=== PATIENT | female | born 1990 | race Two or more races ===

== ENCOUNTER 2024-03-25 06:50 | Emergency (ER) | payer MEDICAID, OTHER ==
[~2024-03-25] VITALS: Ht 157.5 cm; Wt 68.1 kg
--- NOTE | 2024-03-25 07:09 | ED.PDOC ---
SOB-HPI HPI Comments 33 YEAR OLD FEMALE PRESENTS TO THE ED WITH CHIEF COMPLAINT OF COUGH. PATIENT REPORTS THAT SHE HAS BEEN EXPERIENCING A COUGH WITH ASSOCIATED NASAL CONGESTION AND SORE THROAT SINCE YESTERDAY. PATIENT RELAYS THAT SHE IS CURRENTLY 8 WEEKS . PATIENT IS . PATIENT DENIES ANY N/V/D, SOB, CHEST PAIN, DIZZINESS, HEADACHE, FEVER, OR CHILLS. Chief Complaint: Flu like Time Seen by MD: 07:00 Reviewed notes: Nurses Notes, Medications, Allergies Information Source: Patient Mode of Arrival: Ambulatory Severity: Mild Timing: Days Duration: Since onset Context: At Rest PE Risk Factors: None History of: None Prehospital treatment: None Modifying Factors: Nothing Associated Signs and Symptoms: Cough, Nasal Congestion, Sore Throat If cough with SOB: Productive Past Medical History PAST MEDICAL HISTORY: Denies Surgical History: Denies all surgeries GROUP HOME COUNSELOR History: No Pertinent GROUP HOME COUNSELOR History 4 Para 3 Family History Family History: Reviewed,noncontributory to illness Social History Smoker: Non-Smoker Alcohol: Denies ETOH Use Drugs: Denies Drug Use Lives In: Home Constitutional: denies: chills, diaphoresis, fatigue, fever, malaise, sweats, weakness, others EENTM: reports: nose congestion, throat pain; denies: blurred vision, double vision, ear bleeding, ear discharge, ear drainage, ear pain, ear ringing, eye pain, eye redness, hearing loss, mouth pain, mouth swelling, nasal discharge, nose bleeding, nose pain, photophobia, tearing, throat swelling, voice changes, others Respiratory: reports: cough; denies: hemoptysis, orthopnea, SOB at rest, shortness of breath, SOB with excertion, stridor, wheezing, others Cardiovascular: denies: chest pain, dizzy spells, diaphoresis, Dyspnea on exertion, edema, irregular heart beat, left arm pain, lightheadedness, palpitations, PND, syncope, others Gastrointestinal: denies: abdomen distended, abdominal pain, blood streaked bowels, constipated, diarrhea, dysphagia, difficulty swallowing, hematemesis, melena, nausea, poor appetite, poor fluid intake, rectal bleeding, rectal pain, vomiting, others Genitourinary: reports: ; denies: abnormal vagina bleeding, burning, dyspareunia, dysuria, flank pain, frequency, hematuria, incontinence, pain, vagina discharge, urgency, others Neurological: denies: dizziness, fainting, headache, left sided numbness, left sided weakness, numbness, paresthesia, pre-existing deficit, right sided numbness, right sided weakness, seizure, speech problems, tingling, tremors, weakness, others Musculoskeletal: denies: back pain, gout, joint pain, joint swelling, muscle pain, muscle stiffness, neck pain, others Integumetry: denies: bruises, change in color, change in hair/nails, dryness, laceration, lesions, lumps, rash, wounds, others Allergic/Immunocompromised: denies: Difficulty Healing, Frequent Infections, Hives, Itching, others Hematologic/Lymphatic: denies: anemia, blood clots, easy bleeding, easy bruising, swollen glands, others Endocrine: denies: excessive hunger, excessive sweating, excessive thirst, excessive urination, flushing, intolerance to cold, intolerance to heat, unexplained weight gain, unexplained weight loss, others Psychiatric: denies: anxiety, bipolar disorder, depression, hopeless, panic disorder, schizophrenia, sleepless, suicidal, others All Other Systems: Reviewed and Negative Physical Exam General Appearance: No Apparent Distress, Normal HEENT: PERRL/EOMI, Pharyngeal Erythema (VESICLE PHARYNX, NO EXUDATES. ), TMs Normal Neck: Full Range of Motion, Non-Tender, Normal, Normal Inspection Respiratory: Chest Non-Tender, Lungs Clear, No Accessory Muscle Use, No Respiratory Distress, Normal Breath Sounds Cardiovascular: No Edema, No JVD, No Murmur, No Gallop, Normal Peripheral Pulses, Regular Rate/Rhythm Breast Exam: Deferred Gastrointestinal: No Organomegaly, Non Tender, No Pulsatile Mass, Normal Bowel Sounds, Soft Genitalia: Deferred Pelvic: Deferred Rectal: Deferred Extremities: No calf tenderness, Normal capillary refill, Normal inspection, Normal range of motion, Non-tender, No pedal edema Musculoskeletal : Apperance: Normal Neurologic: Alert, public relations II-XII nml as Tested, No Motor Deficits, Normal Affect, Normal Mood, No Sensory Deficits Cerebellar Function: Normal Reflexes: Normal Skin: Dry, Normal Color, Warm Peripheral Pulses: 2+ carotid (R), 2+ carotid (L) Lymphatic: No Adenopathy Was a procedure done? Was a procedure done?: No Differential Dx Differential Diagnosis: Sinusitis, Allergic Rhinitis, Otitis Media, Pharyngitis, URI X-Ray, Labs, Meds, VS Vital Signs Date Time Temp Pulse Resp B/P (MAP) Pulse Ox O2 Delivery O2 Flow Rate FiO2 03/25/24 06:57 98.7 111 16 113/75 (88) 96 03/25/24 06:57 16 96 Room Air* 0 21 X-Ray, Labs, Meds, VS Comment - I reviewed the following notes from patient's past medical encounters: NA - The following tests were ordered, and results were reviewed by me: NA - Additional information was gathered from interviewing the following independent Historian: NA - I reviewed and agreed with the following test results read by other provider: NA - I discussed treatments and results with medical personnel. Time of 1ST Reevaluation: 07:30 Reevaluation 1ST: Improved Patient Education/Counseling: Diagnosis, Treatment, Need For Follow Up Family Education/Counseling: Diagnosis, Treatment, Need For Follow Up Medical Screening: No EMC Exist At This Time Departure 1 Departure Time of Disposition: 07:30 Impression: Primary Impression: Pharyngitis Qualified Codes: J02.9 - Acute pharyngitis, unspecified Disposition: 01 HOME / SELF CARE / HOMELESS Condition: Stable Additional Instructions: FOLLOW UP WITH PCP WITHIN 2-3 DAYS. e-Prescriptions Acetaminophen (Tylenol Extra Strength Fo) 500 Mg Tab 500 MG PO TID, #30 TAB Prov: KHUSHBOO GIRALDO 03/25/24 Azithromycin (ZITHROMAX TABLET) 250 Mg Tb 250 MG PO DAILY, #6 TAB Prov: KHUSHBOO GIRALDO 03/25/24 Discharged With: Self Critical Care Note Critical Care Time?: No Stability Stability form required: No Heart Score Heart Score: Heart Score Response (Comments) Value History N/A 0 EKG N/A 0 Age N/A 0 Risk Factors N/A 0 Troponin N/A 0 Total 0 I personally scribed for KHUSHBOO GIRALDO ([email or web address]) on 03/25/24 at 07:09. Electronically submitted by Isidro Andres ([email or web address]). KHUSHBOO GIRALDO Mar 25, 2024 07:09
[2024-03-25] MEDS ORDERED: ACET-1304 PO (07:12)
[2024-03-25] MEDS ORDERED: AZIT-185 PO (07:12)
[2024-03-25 07:33] VITALS: BP 113/78; PULSE 101; RESP 18; TEMP 98.7; O2SAT 98
== END 2024-03-25 07:35 | disposition home or self-care (01) ==
LOC: ER 06:50
DX: O99.511 Diseases of the respiratory system complicating pregnancy, first trimester (principal); J02.9 Acute pharyngitis, unspecified; Z3A.08 8 weeks gestation of pregnancy

== ENCOUNTER 2024-09-16 08:50 | Emergency (ER) | payer OTHER, MEDICAID ==
[~2024-09-16] VITALS: Ht 160 cm; Wt 72.0 kg
[~2024-09-16 08:50] MED LIST: ACET-1304 PO; AZIT-185 PO
[2024-09-16 09:05] VITALS: BP 114/77; PULSE 101; RESP 17; TEMP 98.6; O2SAT 96
--- NOTE | 2024-09-16 09:32 | ED.PDOC ---
History of Present Illness HPI Comments 33-year-old female presents with a chief complaint of flu-like symptoms x 3 days. Patient states that she has been feeling nasal congestion, body aches, and throat pain. Patient is 33 weeks , . Patient denies any vaginal bleeding at this time or pelvic pain. Patient is currently on Keflex for 3 pills x daily for a diagnosed UTI. Chief Complaint: Flu like Time Seen by MD: 09:19 Reviewed Notes: Medications, Allergies Allergies: Coded Allergies: Morphine (Verified Allergy, Unknown, 03/25/24) Home Meds Active Scripts Acetaminophen (Tylenol Extra Strength Fo) 500 Mg Tab, 500 MG PO TID, #30 TAB Prov:KHUSHBOO GIRALDO 03/25/24 Azithromycin (ZITHROMAX TABLET) 250 Mg Tb, 250 MG PO DAILY, #6 TAB Prov:KHUSHBOO GIRALDO 03/25/24 Information Source: Patient Mode of Arrival: Ambulatory Severity: Moderate Timing: Days Duration: Since onset Prehospital treatment: None Past Medical History PAST MEDICAL HISTORY: Denies Surgical History: Denies all surgeries SCRAP YARD WORKER History: No Pertinent SCRAP YARD WORKER History Family History Family History: Reviewed,noncontributory to illness Social History Smoker: Non-Smoker Alcohol: Denies ETOH Use Drugs: Denies Drug Use Lives In: Home Constitutional: denies: chills, diaphoresis, fatigue, fever, malaise, sweats, weakness, others EENTM: reports: nose congestion, throat pain; denies: blurred vision, double vision, ear bleeding, ear discharge, ear drainage, ear pain, ear ringing, eye pain, eye redness, hearing loss, mouth pain, mouth swelling, nasal discharge, nose bleeding, nose pain, photophobia, tearing, throat swelling, voice changes, others Respiratory: denies: cough, hemoptysis, orthopnea, SOB at rest, shortness of breath, SOB with excertion, stridor, wheezing, others Cardiovascular: denies: chest pain, dizzy spells, diaphoresis, Dyspnea on exertion, edema, irregular heart beat, left arm pain, lightheadedness, palpitations, PND, syncope, others Gastrointestinal: denies: abdomen distended, abdominal pain, blood streaked bowels, constipated, diarrhea, dysphagia, difficulty swallowing, hematemesis, melena, nausea, poor appetite, poor fluid intake, rectal bleeding, rectal pain, vomiting, others Genitourinary: reports: ; denies: abnormal vagina bleeding, burning, dyspareunia, dysuria, flank pain, frequency, hematuria, incontinence, pain, vagina discharge, urgency, others Neurological: denies: dizziness, fainting, headache, left sided numbness, left sided weakness, numbness, paresthesia, pre-existing deficit, right sided numbness, right sided weakness, seizure, speech problems, tingling, tremors, weakness, others Musculoskeletal: denies: back pain, gout, joint pain, joint swelling, muscle pain, muscle stiffness, neck pain, others Integumetry: denies: bruises, change in color, change in hair/nails, dryness, laceration, lesions, lumps, rash, wounds, others Allergic/Immunocompromised: denies: Difficulty Healing, Frequent Infections, Hives, Itching, others Hematologic/Lymphatic: denies: anemia, blood clots, easy bleeding, easy bruising, swollen glands, others Endocrine: denies: excessive hunger, excessive sweating, excessive thirst, excessive urination, flushing, intolerance to cold, intolerance to heat, unexplained weight gain, unexplained weight loss, others Psychiatric: denies: anxiety, bipolar disorder, depression, hopeless, panic disorder, schizophrenia, sleepless, suicidal, others All Other Systems: Reviewed and Negative Physical Exam General Appearance: Moderate Distress, Normal HEENT: Normal ENT Inspection, Pharynx Normal, TMs Normal Neck: Full Range of Motion, Non-Tender, Normal, Normal Inspection Respiratory: Chest Non-Tender, Lungs Clear, No Accessory Muscle Use, No Respiratory Distress, Normal Breath Sounds Cardiovascular: No Edema, No JVD, No Murmur, No Gallop, Normal Peripheral Pulses, Regular Rate/Rhythm Breast Exam: Deferred Gastrointestinal: No Organomegaly, Non Tender, No Pulsatile Mass, Normal Bowel Sounds, Soft Genitalia: Deferred Pelvic: Deferred Rectal: Deferred Extremities: No calf tenderness, Normal capillary refill, Normal inspection, Normal range of motion, Non-tender, No pedal edema Musculoskeletal : Apperance: Normal Neurologic: Alert, ear nose throat surgeon II-XII nml as Tested, No Motor Deficits, Normal Affect, Normal Mood, No Sensory Deficits Cerebellar Function: Normal Reflexes: Normal Skin: Dry, Normal Color, Warm Peripheral Pulses: 3+ Radial (R), 3+ Radial (L) Lymphatic: No Adenopathy Was a procedure done? Was a procedure done?: No Differential Dx Considerations may include: Upper respiratory tract infection X-Ray, Labs, Meds, VS Vital Signs Date Time Temp Pulse Resp B/P (MAP) Pulse Ox O2 Delivery O2 Flow Rate FiO2 09/16/24 09:05 101 17 96 Room Air* 0 21 09/16/24 09:05 98.6 101 17 114/77 (89) 96 98.6 09/16/24 09:05 98.6 101 17 114/77 (89) 96 98.6 Patient alert. Vitals stable. No sign of distress. Saturation pristine on room air. Respiratory rate within normal limits. Heart rate on clinical examination within normal limits. No fever. No leg swelling. No discoloration. She is currently taking Keflex for urinary tract infection. Explained to the patient about antibiotic course. Was given prescription of amoxicillin antibiotic. Was told to follow up with her primary care physician. Was told to come back if there is any problem. Time of 1ST Reevaluation: 09:49 Reevaluation 1ST: Improved Patient Education/Counseling: Diagnosis, Treatment, Need For Follow Up Family Education/Counseling: No Family Present SEPSIS Sepsis Screen Date sepsis recognized/suspect: Sep 16, 2024 Time Sepsis recognized/suspect: 904 Recent Procedure: No On Antibiotic Therapy: No Respiratory Rate >20: No Heart Rate >90: Yes Temp<36 C (96.8 F) or >38.3 C: No SBP <90 or MAP <65 mmHG: No New Acute Mental Status Change: No Is the patient on CPAP, BIPAP,: No Vital Signs Date Time Temp Pulse Resp B/P (MAP) Pulse Ox O2 Delivery O2 Flow Rate FiO2 09/16/24 09:05 101 17 96 Room Air* 0 21 09/16/24 09:05 98.6 101 17 114/77 (89) 96 98.6 09/16/24 09:05 98.6 101 17 114/77 (89) 96 98.6 Departure 1 Departure Time of Disposition: 09:34 Impression: Primary Impression: Normal Qualified Codes: Z34.90 - Encounter for supervision of normal , unspecified, unspecified trimester Additional Impression: Upper respiratory tract infection Qualified Codes: J06.9 - Acute upper respiratory infection, unspecified Disposition: 01 HOME / SELF CARE / HOMELESS Condition: Good e-Prescriptions Amoxicillin Trihydrate (Amoxicillin) 500 Mg Tab 1 TAB PO TID for 7 Days, #21 TAB Prov: RODRIGO DOAN MD 09/16/24 Discharged With: Self Critical Care Note Critical Care Time?: No Stability Stability form required: No Heart Score Heart Score: Heart Score Response (Comments) Value History N/A 0 EKG N/A 0 Age N/A 0 Risk Factors N/A 0 Troponin N/A 0 Total 0 I personally scribed for RODRIGO DOAN MD ([email or web address]) on 09/16/24 at 09:32. Electronically submitted by Keo Dexter ([email or web address]). RODRIGO DOAN MD Sep 16, 2024 09:32
[2024-09-16] MEDS ORDERED: AMOX500T3 PO (09:35)
== END 2024-09-16 10:06 | disposition home or self-care (01) ==
LOC: ER 08:50
DX: O99.513 Diseases of the respiratory system complicating pregnancy, third trimester (principal); Z3A.33 33 weeks gestation of pregnancy; Z88.5 Allergy status to narcotic agent

== ENCOUNTER 2024-09-19 10:30 | Observation (INO) | payer OTHER, MEDICAID ==
[~2024-09-19 10:30] MED LIST changes: +AMOX500T3 PO
--- NOTE | 2024-09-19 11:49 | DVH ---
BIOPHYSICAL PROFILE HISTORY: decreased movement Comparison Study: None TECHNIQUE: Multiple real-time grayscale sonographic images through the gravid uterus of the fetus wit h duplex doppler color flow and M-mode spectral analysis FINDINGS: BIOPHYSICAL PROFILE: breathing score: 2 movement score: 2 tone score: 2 Quantitative RITA score: 2 (RITA: 12.6 cm.) Total score: 8/8 Single live fetus in cephalic presentation. heart rate 141 beats per minute. Grade 1 posterior placenta without previa or abruption Biophysical profile score 8/8 corresponding to an LUIS of 11/01/24 IMPRESSION: Biophysical profile score: 8/8
--- NOTE | 2024-09-20 06:04 | DVHDS2 ---
Discharge Summary Discharge Summary Date of Admission: Sep 19, 2024 Date of Discharge: Sep 19, 2024 Discharge Diagnosis: 33.6 weeks decreased movement Procedures NST US Brief History: NST US reassuring Hospital Course NST OB performed Physical exam on Discharge nl Discharge Disposition: Home Discharge Instructions kick counts labor precautions Medications resume home meds Follow up as scheduled Discharge Care Plan Problem decreased labor Visit Coding OBGYN Date of Service: Sep 19, 2024 Billing Provider: TRES HUMPHREY DO NEWS ASSIGNMENT EDITOR Common Visit Codes: 34748-DHY/OBS SAME DATE (LOW), 30748-KAL/OBS SAME DATE (MOD), 63576-NZD/OBS SAME DATE (HIGH) NEWS ASSIGNMENT EDITOR Procedure Codes: 68248-91- NON-STRESS TEST TRES HUMPHREY DO Sep 20, 2024 06:03
== END 2024-09-19 12:30 | disposition home or self-care (01) ==
LOC: LDRP 10:30
PROVIDERS: ADMIT Obstetrics & Gynecology; ATTEND Obstetrics & Gynecology
DX: O36.8130 Decreased fetal movements, third trimester, not applicable or unspecified (principal); Z98.890 Other specified postprocedural states; Z79.899 Other long term (current) drug therapy; Z3A.33 33 weeks gestation of pregnancy
CPT/HCPCS: 76818; G0378; 59025; 76819